=== PATIENT | male | born 1990 | race Caucasian/White ===

== ENCOUNTER 2017-02-07 11:03 | Emergency (ER) | payer MEDICAID ==
--- NOTE | 2017-02-07 12:58 | ED Physician Chart ---
Chief Complaint/HPI - Patient Information Date Seen:: 02/07/17 Time Seen:: 12:00 Chief Complaint:: diarrhea History of Present Illness:: Patient has had watery diarrhea about 5 times a day for the last 2 days. He's had no vomiting. He's had no fever. Patient has had no recent foreign travel including no recent travel to [place]. Patient denies abdominal pain. Allergies:: Allergies Allergy/AdvReac Type Severity Reaction Status Date / Time No Known Allergies Allergy Verified 02/07/17 11:36 Vitals:: Vital Signs - 8 hr 02/07/17 02/07/17 11:25 12:10 Temp 98.2 F 98.2 F HR 71 71 RR 18 18 BP 107/41 107/41 O2 Sat % 98 98 Historian:: Patient Review:: Nurse's Note Reviewed Review of Systems - Review of Systems General/Constitutional: No fever, No chills Skin: No skin lesions Head: No headache Eyes: No loss of vision ENT: No earache, No sore throat Neck: No neck pain, No swelling Cardio Vascular: No chest pain, No palpitations, No PND Pulmonary: No SOB GI: No nausea, No vomiting, Diarrhea G/U: No dysuria, No hematuria Musculoskeletal: No bone or joint pain Endocrine: No polyuria, No polydipsia Psychiatric: No prior psych history, No anxiety Hematopoietic: No bruising Allergic/Immuno: No urticaria Neurological: No syncope Past Medical History - Past Medical History Past Medical History: No significant medical hx Family History: None Social History: Smoker, Alcohol Surgical History: None Psychiatricy History: None Medication: None Family Medical History - Family Member Mother Ethnicity: Living Status: Still Living Hx Family Cancer: No Hx Family Coronary Artery Disease: No Hx Family Congestive Heart Failure: No Hx Family Hypertension: No Hx Family Stroke: No Hx Family Diabetes: No Hx Family Seizures: No Hx Family Dementia: No Hx Family AIDS: No Hx Family HIV: No Hx Family COPD: No Hx Family Hepatitis: No Hx Family Psychiatric Problems: No Hx Family Tuberculosis: No Physical Exam - Physical Examination General/Constitutional: Well-developed, well-nourished, Alert, No distress Head: Atraumatic Eyes: Lids, conjuctiva normal, PERRL Skin: Nl inspection, No rash, No skin lesions, No ecchymosis ENMT: External ears, nose nl, TM canals nl, Nasal exam nl, Lips, teeth, gums nl , Oropharynx nl, Tonsils nl Neck: No nuchal rigidity Respiratory: Nl effort/Exclusion, Clear to Auscultation, No Wheeze/Rhonchi/Rales Cardio Vascular: RRR, No murmur, gallop, rubs, NL S1 S2 GI: No tenderness/rebounding/guarding, No organomegaly, No hernia, Normal BS's, Nondistended, No mass/bruits, No McBurney tenderness : No CVA tenderness Extremities: Normal digits & nails Neuro/Psych: No focal deficits Misc: Normal back, No paraspinal tenderness Assessment - Assessment General Assessment: Patient was offered an IV which would have been 2 L of normal saline as a bolus and was offered blood tests which would have been a CBC, basic metabolic panel and magnesium level. Patient declined IV and lab tests. Patient was told to drink lots of half Gatorade half water and to start with bananas and get back to a regular diet as soon as possible and to avoid greasy foods for a couple days. Patient was told he could get some Imodium [id number] but only take 1-2 of them as if he takes too many he'll end up with constipation. ED Septic Shock - . Is Septic Shock (SBP<90, OR Lactate>4 mmol\L) present?: No - <6hrs of presentation: Vital Signs: Vital Signs - 8 hr 02/07/17 02/07/17 11:25 12:10 Temp 98.2 F 98.2 F HR 71 71 RR 18 18 BP 107/41 107/41 O2 Sat % 98 98 Reassessment (Disposition) - Reassessment Reassessment Condition:: Unchanged - Diagnosis Diagnosis:: Viral enteritis with diarrhea - Aftercare/Follow up Instructions Aftercare/Follow-Up Instructions:: Refer to Discharge Instructions - Patient Disposition Discharge/Transfer:: Home Condition at Disposition:: Stable, Unchanged ED Discharge Plan - Patient Disposition Admit/Discharge/Transfer: PT DISCHARGED HOME Condition at Disposition: Stable Instructions: Viral Gastroenteritis Forms: Work Release Form
== END 2017-02-07 12:15 | disposition home or self-care (01) ==
LOC: ER 11:03
DX: A08.39 Other viral enteritis (principal); R19.7 Diarrhea, unspecified; F17.200 Nicotine dependence, unspecified, uncomplicated

== ENCOUNTER 2017-02-21 18:47 | Emergency (ER) | payer MEDICAID ==
--- NOTE | 2017-02-21 20:02 | ED Physician Chart ---
Chief Complaint/HPI - Patient Information Date Seen:: 02/21/17 Time Seen:: 19:45 Chief Complaint:: sore throat History of Present Illness:: Patient has had a sore throat for the last 3 days. He felt warm last night he did not take his temperature. Patient has also had a cough for 3 days productive of yellow sputum. Allergies:: Allergies Allergy/AdvReac Type Severity Reaction Status Date / Time No Known Allergies Allergy Verified 02/21/17 18:58 Vitals:: Vital Signs - 8 hr 02/21/17 18:50 Temp 97.5 F HR 78 RR 20 BP 92/47 O2 Sat % 97 Historian:: Patient Review:: Nurse's Note Reviewed Review of Systems - Review of Systems General/Constitutional: Fever Skin: No skin lesions, No rash Head: No headache, No light-headedness Eyes: No loss of vision, No pain, No diplopia ENT: No earache, Sore throat Neck: No neck pain Cardio Vascular: No chest pain, No palpitations Past Medical History - Past Medical History Past Medical History: No significant medical hx Family History: HTN Social History: Smoker, No Alcohol Surgical History: None Psychiatricy History: None Medication: None Family Medical History - Family Member Mother Ethnicity: Living Status: Still Living Hx Family Cancer: No Hx Family Coronary Artery Disease: No Hx Family Congestive Heart Failure: No Hx Family Hypertension: No Hx Family Stroke: No Hx Family Diabetes: No Hx Family Seizures: No Hx Family Dementia: No Hx Family AIDS: No Hx Family HIV: No Hx Family COPD: No Hx Family Hepatitis: No Hx Family Psychiatric Problems: No Hx Family Tuberculosis: No Father Age: 56 Ethnicity: Living Status: Still Living Hx Family Hypertension: Yes Physical Exam - Physical Examination General/Constitutional: Well-developed, well-nourished, Alert Head: Atraumatic Eyes: Lids, conjuctiva normal, PERRL Skin: Nl inspection, No rash, No skin lesions, No ecchymosis, Well hydrated ENMT: External ears, nose nl, TM canals nl, Nasal exam nl, Lips, teeth, gums nl , Oropharynx nl, Tonsils nl Neck: No nuchal rigidity Respiratory: Nl effort/Exclusion, Clear to Auscultation, No Wheeze/Rhonchi/Rales Cardio Vascular: RRR, No murmur, gallop, rubs GI: No tenderness/rebounding/guarding, No organomegaly, No hernia, Normal BS's, Nondistended, No mass/bruits, No McBurney tenderness : No CVA tenderness Extremities: No tenderness or effusion Neuro/Psych: Alert/oriented Misc: Normal back ED Septic Shock - . Is Septic Shock (SBP<90, OR Lactate>4 mmol\L) present?: No - <6hrs of presentation: Vital Signs: Vital Signs - 8 hr 02/21/17 18:50 Temp 97.5 F HR 78 RR 20 BP 92/47 O2 Sat % 97 Reassessment (Disposition) - Reassessment Reassessment Condition:: Unchanged - Diagnosis Diagnosis:: acute viral syndrome - Aftercare/Follow up Instructions Aftercare/Follow-Up Instructions:: Refer to Discharge Instructions - Patient Disposition Discharge/Transfer:: Home Condition at Disposition:: Stable, Unchanged ED Discharge Plan - Patient Disposition Instructions: Viral Infections, [id number] Additional Instructions: FOLLOW UP WITH YOUR REGULAR DOCTOR IN 1-2 DAYS IF NOT FEELING ANY BETTER. Forms: Work Release Form
== END 2017-02-21 20:20 | disposition home or self-care (01) ==
LOC: ER 18:47
DX: B34.9 Viral infection, unspecified (principal); F17.200 Nicotine dependence, unspecified, uncomplicated
CPT/HCPCS: Z7502